=== PATIENT | male | born 1950 | race Caucasian/White ===

== ENCOUNTER → 2024-12-09 07:14 | Outpatient (REF) | payer OTHER, SELFPAY | LOC: HWRCS 07:14 | PROVIDERS: ATTENDING PHYSICIAN Internal Medicine Cardiovascular Disease; FAMILY PHYSICIAN Family Medicine | DX: I45.10 Unspecified right bundle-branch block (principal); I44.4 Left anterior fascicular block; R07.9 Chest pain, unspecified | CPT/HCPCS: 93306 ==